=== PATIENT | female | born 1990 | race Two or more races ===

== ENCOUNTER 2025-02-21 12:38 | Emergency (ER) | payer OTHER, SELFPAY ==
[2025-02-21 12:41] VITALS: BMI 27.4
[2025-02-21 13:13] VITALS: BP 108/72; PULSE 87; RESP 16; TEMP 36.6; O2SAT 100
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
[2025-02-21] MEDS: ACETAMINOPHEN 500 MG TABLET 1000 MG PO (13:27)
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
== END 2025-02-21 14:46 | disposition home or self-care (01) ==
LOC: SERX 14:40
PROVIDERS: Emergency Provider Emergency Medicine; PCP Specialist
DX: S06.0XAA Concussion with loss of consciousness status unknown, initial encounter (principal); Y04.0XXA Assault by unarmed brawl or fight, initial encounter
CPT/HCPCS: 70150; 70450; 99283; A9270